=== PATIENT | male | born 1945 | race Caucasian/White ===

== ENCOUNTER 2021-01-10 12:02 | Emergency (ER) | payer OTHER, MEDICAID ==
[2021-01-10 12:59] VITALS: TEMP 97.7
[2021-01-10] MEDS ORDERED: NORVASC 10MG10 MG PO (14:30)
[2021-01-10 15:42] VITALS: BP 139/80; PULSE 85
== END 2021-01-10 15:45 | disposition home or self-care (01) ==
LOC: COL.ER 12:02
DX: M25.571 Pain in right ankle and joints of right foot (principal); M79.89 Other specified soft tissue disorders; I10 Essential (primary) hypertension; Z87.891 Personal history of nicotine dependence; Z79.899 Other long term (current) drug therapy

== ENCOUNTER 2022-02-27 09:16 | Inpatient (IN) | payer MEDICARE, MEDICAID ==
[~2022-02-27] VITALS: Ht 170.2 cm; Wt 78.4 kg
[2022-02-27] VITALS (713 sets, daily range): BP systolic 62–97; BP diastolic 40–63; PULSE 58–80; TEMP 91.2–97.7; O2SAT 86–100
[~2022-02-27 09:16] MED LIST: NORVASC 10MG10 MG PO
[2022-02-27 09:32] LABS: BASO # 0.1 K/mm3 (0.0-0.2); BASO % 0.7 % (0.0-2.0); EOS # 0.6 K/mm3 (0.0-0.7); EOS % 8.3 % (0.0-4.0); GRAN # 3.8 K/mm3 (1.4-6.5); GRAN % 50.2 % (42.2-75.2); HEMATOCRIT 39.7 % (42.0-52.0); HEMOGLOBIN 12.9 g/dl (13.5-18.0); LYMPH # 2.6 K/mm3 (1.2-3.4); LYMPH % 33.8 % (20.0-51.0); MEAN CELL VOLUME 100 fl (80.0-100.0); MEAN CORPUSCULAR HEMOGLOBIN 33 pg (27-31); MEAN CORPUSCULAR HGB CONC 33 g/dl (33.0-37.0); MEAN PLATELET VOLUME 10.1 fl (7.4-10.4); MONO # 0.5 K/mm3 (0.1-0.6); MONO % 6.7 % (1.7-9.3); PLATELET COUNT 166 K/mm3 (130-400); RED BLOOD COUNT 3.96 M/mm3 (4.20-5.60); REDCELL DISTRIBUTION WIDTH-CV 13.2 % (11.5-14.5)
[2022-02-27 09:49] LABS: BILIRUBIN,TOTAL 0.7 mg/dL (0.2-1.2); CALCIUM 9.7 mg/dL (8.4-10.2); CREATININE, serum 1.71 mg/dL (0.72-1.25); POTASSIUM 3.6 mmol/L (3.5-4.5); TOTAL PROTEIN 7.7 gm/dL (6.2-8.1)
[2022-02-27 10:13] LABS: COLLECTION METHOD CLEAN CATCH
[2022-02-27 10:29] LABS: MUCOUS Present (NOT PRESENT); URINE BACTERIA None Seen /hpf (NONE SEEN)
[2022-02-27 10:33] LABS: URINE APPEARANCE Hazy (CLEAR/HAZY); URINE BLOOD TRACE-INTACT (NEGATIVE); URINE COLOR Yellow (YELLOW); URINE GLUCOSE Negative (NEGATIVE); URINE KETONE Negative (NEGATIVE); URINE NITRATE Negative (NEGATIVE); URINE PROTEIN(semi-quant) Negative (NEGATIVE); URINE UROBILINOGEN 0.2 E.U/dL (0.2-1.0)
--- NOTE | 2022-02-27 12:34 | NUR ---
PT INTUBATED DUE TO L0W SATS ANF FAILED ATTEMPT WITH BIPAP. PT HAD ASPIRATED, WHICH CASUED DIFFICULTY OXYGENATING. SETTINGS GIVEN BE DR CARDONA
[2022-02-27] MEDS ORDERED: TYLENOL 325MG325 MG PO (12:54)
[2022-02-27] MEDS ORDERED: CLARITIN 1010 MG/TAB PO (12:55)
[2022-02-27] MEDS ORDERED: ARICEPT10 MG PO (12:55)
[2022-02-27] MEDS ORDERED: MUCINEX 60600 MG/TA1 PO (12:57)
[2022-02-27] MEDS ORDERED: LACTAID ULTRA9000 U (12:57)
[2022-02-27] MEDS ORDERED: FLOVENT 110MCG7.9 GM IH (12:57)
[2022-02-27] MEDS ORDERED: NAMENDA5 MG PO (12:58)
[2022-02-27] MEDS ORDERED: NORVASC 10MG10 MG PO (12:58)
[2022-02-27] MEDS ORDERED: TESSALON P100 MG/CAP PO (12:58)
[2022-02-27] MEDS ORDERED: B-12 500 MCG PO (12:59)
[2022-02-27 14:30] LABS: ARTERIAL BLD GAS O2 SATURATION 93.7 % (92-100); ARTERIAL BLD GAS TCO2 CT 20.1; ARTERIAL BLOOD GAS BASE EXCESS -7.9 (-2-2); ARTERIAL BLOOD GAS HCO3 18.8 meq/L (22-26); ARTERIAL BLOOD GAS PCO2 42.6 mmHg (35-45); ARTERIAL BLOOD GAS PO2 76.5 mmHg (80-100); ARTERIAL BLOOD GAS pH 7.26 (7.35-7.45)
--- NOTE | 2022-02-27 18:56 | NUR ---
1200: PT ARRIVED TO ICU 8 FROM ER ON VENTILATOR WITH ER STAFF. PT OPENS EYES. PT ARRIVED ON FENT @ 25MCG/HR AND PROPOFOL @ 20 MCG/KG/MIN TO [facility]. GUARDIAN IN WAITING ROOM AT THIS TIME. NEHEMIAH KAUR PLACED ON PT. COLLINS IN PLACE. 1914: REPORT GIVEN TO WAN NEVILLE. PT REMAINS ON VENT. SEE DOC FOR GTT TITRATION.
--- NOTE | 2022-02-27 19:21 | NUR ---
REPORT TAKEN, PT FOUND ON CHARTED SETTINGS, NO CHANGES MADE. ORAL CARE AT THIS TIME. ALARMS TESTED AND WORKING.
[2022-02-27 19:57] LABS: ARTERIAL BLD GAS O2 SATURATION 94.5 % (92-100); ARTERIAL BLOOD GAS BASE EXCESS -5.7 (-2-2); ARTERIAL BLOOD GAS HCO3 19.8 meq/L (22-26); ARTERIAL BLOOD GAS PCO2 38.9 mmHg (35-45); ARTERIAL BLOOD GAS PO2 73.7 mmHg (80-100); ARTERIAL BLOOD GAS pH 7.32 (7.35-7.45)
--- NOTE | 2022-02-27 20:00 | NUR ---
BEDSIDE REPORT RECEIVED FROM WAN WILKINS. PT ASSESSMENT COMPLETED AT THIS TIME. PT HAD LEVOPHED RUNNING AT A RATE OF 27.3ML/HR, NS AT 125ML/HR, PROPOFOL AT 15.1ML/HR, AND FENTANYL AT 3.8ML/HR. PT IS RESTING COMFORTABLY. VSS.
--- NOTE | 2022-02-27 20:58 | NUR ---
PTS OG TUBE UPON ASSESSMENT WAS AT 42 AT THE GUMS. AIR WAS NOT AUDIBLE WITH THIS PLACEMENT. ADVANCED THE OG TUBE TO 60 AT THE GUMS AND AIR WAS AUDIBLE AT THIS POSITION. VIPUL CLARKE WAS MADE AWARE. OG TUBE WILL REMAIN CLAMPED UNTIL AM CHEST XRAY TO REVERIFY PLACEMENT.
--- NOTE | 2022-02-27 21:40 | NUR ---
ETT 24@ [facility]. (No teeth)
--- NOTE | 2022-02-27 23:26 | NUR ---
MELVA 24@ [facility].
[2022-02-28] VITALS (1324 sets, daily range): BP systolic 85–126; BP diastolic 48–79; PULSE 67–101; TEMP 98.6–100.4; O2SAT 80–100
[2022-02-28 04:26] LABS: MEAN CELL VOLUME 100 fl (80.0-100.0); MEAN CORPUSCULAR HEMOGLOBIN 33 pg (27-31); MEAN CORPUSCULAR HGB CONC 33 g/dl (33.0-37.0); MEAN PLATELET VOLUME 9.9 fl (7.4-10.4); PLATELET COUNT 131 K/mm3 (130-400); RED BLOOD COUNT 3.34 M/mm3 (4.20-5.60); REDCELL DISTRIBUTION WIDTH-CV 13.3 % (11.5-14.5)
[2022-02-28 04:31] LABS: ARTERIAL BLD GAS O2 SATURATION 93.5 % (92-100); ARTERIAL BLD GAS TCO2 CT 18.5; ARTERIAL BLOOD GAS BASE EXCESS -8.5 (-2-2); ARTERIAL BLOOD GAS HCO3 17.4 meq/L (22-26); ARTERIAL BLOOD GAS PCO2 37.2 mmHg (35-45); ARTERIAL BLOOD GAS PO2 70.9 mmHg (80-100); ARTERIAL BLOOD GAS pH 7.29 (7.35-7.45)
[2022-02-28 04:31] LABS: HEMATOCRIT 33.3 % (42.0-52.0)
[2022-02-28 04:44] LABS: ALBUMIN 2.9 gm/dL (3.4-4.8); CREATININE, serum 1.53 mg/dL (0.72-1.25); MAGNESIUM 1.6 mg/dL (1.6-2.6); PHOSPHOROUS 4.3 mg/dL (2.3-4.7); POTASSIUM 4.5 mmol/L (3.5-4.5); TOTAL PROTEIN 5.7 gm/dL (6.2-8.1)
[2022-02-28 04:55] LABS: BAND 47 % (0-10); LYMPHOCYTE 10 % (20.0-51.0); METAMYELOCYTE 3 % (0-0); NEUTROPHILS 37 % (42.0-75.2); PLATELET ESTIMATE NORMAL (NORMAL)
--- NOTE | 2022-02-28 05:05 | NUR ---
THROUGHOUT THE NIGHT PT HAS BEEN WELL SEDATED. THROUGHOUT THE NIGHT PTS PROPOFOL HAS BEEN DECREASED FROM 35 TO 25MCG/KG/HR. FENTANYL DECREASED FROM 75MCG/HR TO 50. PT IS STILL SHOWING MODERATE SEDATION WILL CONTINUE TO TITRATE DOWN PER ORDERS NECESSARY.
--- NOTE | 2022-02-28 05:15 | NUR ---
Verbal order from VIPUL Verma Vt [address]. Pt tolerating well.
--- NOTE | 2022-02-28 07:45 | NUR ---
ASSESSMENT COMPLETE. VITAL SIGNS STABLE AT THIS TIME. PATIENT OPENS EYES TO PHYSICAL STIMULI AND MOVES EXTREMITIES UPON PAINFUL STIMULI, HOWEVER DOES NOT FOLLOW VERBAL COMMANDS. ASSISTED WITH ORAL AND ANGEL CARE AND WILL CONTINUE TO MONITOR PATIENT THROUGHOUT SHIFT.
--- NOTE | 2022-02-28 08:00 | NUR ---
UNABLE TO PERFORM SUICIDE SCREEN DUE TO PATIENT ON A VENTILATOR AND SEDATED.
--- NOTE | 2022-02-28 10:55 | NUR ---
NOTIFIED DR. CARDONA ABOUT PATIENT'S LOW URINE OUTPUT OVER NIGHT. RECIEVED ORDER FOR NS BOLUS AND CHANGE FLUIDS TO LR.
--- NOTE | 2022-02-28 16:15 | NUR ---
NOTIFIED HOSPITALIST ABOUT ELEVATED TEMPATURE AND RECEIVED ORDER FOR PRN ORAL TYLENOL.
--- NOTE | 2022-02-28 16:27 | NUR ---
Patient is on a ventilator at this time. airplane woodworker contacted Carina at [facility], where patient resides. Carina states that Gary Warren is patient's guardian and he will fax this information to the ICU unit.
--- NOTE | 2022-02-28 17:00 | NUR ---
SEDATION VACATION NOT PERFORMED FOR PATIENT WAS MOVING AROUND AND PULLING AT RESTRAINTS AND LIFTING HAND TOWARDS ET TUBE. REPOSITIONED PATIENT BUT PATIENT WAS STILL RESTLESS AND LIFTING HAND TOWARD ET TUBE. PATIENT FOLLOWED SIMPLE COMMANDS ABLE TO SQUEEZE WITH HIS RIGHT HAND, WIGGLE TOES, AND OPEN EYES. WILL CONTINUE TO MONITOR THROUGHOUT THIS SHIFT.
--- NOTE | 2022-02-28 19:05 | NUR ---
Received report from WAN Razo.
--- NOTE | 2022-02-28 21:00 | NUR ---
Patient resting quietly in bed. He remains on ventilator, tolerating well. He continues to receive fentanyl, propofol, and levophed drips; see IV drip titrations. Miles catheter draining yellow, hazy urine; to dependent drainage. Miles temperature of 99.9 F, all other vitals within normal limits. Bed in lowest position, all alarms on.
[2022-03-01] VITALS (1120 sets, daily range): BP systolic 93–123; BP diastolic 54–68; PULSE 77–106; TEMP 98.4–100.4; O2SAT 75–100
--- NOTE | 2022-03-01 00:31 | NUR ---
PRESENTED TO ROOM TO CHECK VENT. RECIEVED WORD FROM RN THAT HER AND THE STUDENT HAD JUST COMPLETED ORAL CARE ON PT. NO INDICATION FOR SUCTIONING AT THIS TIME.
--- NOTE | 2022-03-01 04:24 | NUR ---
RN AND STUDENT IN ROOM AT THIS TIME. RN AND STUDENT ARE PERFORMING ORAL CARE ON PT AT TIME OF 022 CHECK HELPED TO ADJUST PT IN BED. NO COMPLICATIONS. NO VOICED CONCERNS.
[2022-03-01 04:51] LABS: HEMOGLOBIN 10.1 g/dl (13.5-18.0); MEAN CELL VOLUME 100 fl (80.0-100.0); MEAN CORPUSCULAR HEMOGLOBIN 33 pg (27-31); MEAN CORPUSCULAR HGB CONC 33 g/dl (33.0-37.0); MEAN PLATELET VOLUME 10.6 fl (7.4-10.4); PLATELET COUNT 114 K/mm3 (130-400); RED BLOOD COUNT 3.07 M/mm3 (4.20-5.60); REDCELL DISTRIBUTION WIDTH-CV 13.6 % (11.5-14.5)
[2022-03-01 04:53] LABS: HEMATOCRIT 30.8 % (42.0-52.0)
[2022-03-01 05:02] LABS: PHOSPHOROUS 3.9 mg/dL (2.3-4.7)
[2022-03-01 05:03] LABS: MAGNESIUM 1.6 mg/dL (1.6-2.6)
--- NOTE | 2022-03-01 05:03 | NUR ---
Sedation set to standby for lab draws. On standby for roughly 10 minutes; patient responds by opening eyes spontaneously and following verbal commands. Lifting head off of pillow voluntarily. No further sedation vacation performed; previous levels resumed.
[2022-03-01 05:04] LABS: ALBUMIN 2.5 gm/dL (3.4-4.8); BILIRUBIN,TOTAL 1.1 mg/dL (0.2-1.2); CALCIUM 8.2 mg/dL (8.4-10.2); CREATININE, serum 1.33 mg/dL (0.72-1.25); POTASSIUM 4.1 mmol/L (3.5-4.5); TOTAL PROTEIN 5.4 gm/dL (6.2-8.1)
[2022-03-01 05:27] LABS: BAND 33 % (0-10); HYPOCHROMIA 1+; LYMPHOCYTE 4 % (20.0-51.0); METAMYELOCYTE 4 % (0-0); NEUTROPHILS 50 % (42.0-75.2); PLATELET ESTIMATE DECREASED (NORMAL)
[2022-03-01 05:28] LABS: ARTERIAL BLD GAS O2 SATURATION 92.2 % (92-100); ARTERIAL BLD GAS TCO2 CT 20.5; ARTERIAL BLOOD GAS BASE EXCESS -5.9 (-2-2); ARTERIAL BLOOD GAS HCO3 19.3 meq/L (22-26); ARTERIAL BLOOD GAS pH 7.34 (7.35-7.45)
[2022-03-01 05:41] LABS: EOSINOPHIL 3 % (0-4)
--- NOTE | 2022-03-01 08:15 | NUR ---
Assessment completed; VS stable and off of pressors. Attempts to open eyes on command but doesn't follow any other commands. Provided gloria-care and reposited at this time.
--- NOTE | 2022-03-01 11:22 | NUR ---
AT 1114 PT PLACED BACK ON PREVIOUS SETTINGS RR 40-45 SATS 88-90%. RN & DR. CARDONA NOTIFIED
--- NOTE | 2022-03-01 11:23 | NUR ---
AT 1114 PT PLACED BACK ON SETTINGS RR 40-45, SATS 88-90%. RN AND DR. CARDONA NOTIFIED
--- NOTE | 2022-03-01 11:24 | NUR ---
Respirations 30's-40's on CPAP trial. RT placed patient back on AC mode on ventilator and notified Dr. Yip. Sedation placed back on.
--- NOTE | 2022-03-01 16:30 | NUR ---
Sedation vacation not performed at this time due to patient being restless in bed; shaking head back and forth, attempting to sit up in bed and pulling at restraints. Patient did open eyes and squeezed this nurses hands on command. Attempted to re-orient patient at this time. Stayed at bedside to help calm patient and sedation increased.
--- NOTE | 2022-03-01 18:47 | NUR ---
Patient having intermittent low grade fevers during shift. PRN tylenol administered this afternoon. Hospitalist notified; will obtain blood cultures and assess current antibiotic regime.
--- NOTE | 2022-03-01 18:59 | NUR ---
PT RESTING IN BED AT THIS TIME. HOB ELEVATED TO BE 30 DEGREES+ AMBUBAG AT HOB ON FLOW METER. PT IS AGGITATED AT THS TIME. RN AWARE/NOTIFIED. WATER TRAP ON VENT DRAINED. RESTRAINTS ARE SECURE. RAILS UP X4.
--- NOTE | 2022-03-01 19:18 | NUR ---
Vancomycin Initial Dosing Pharmacy Note Ordering provider: Kaley Ma MD Indication/duration: Fever, 7 days LABS: SCr 1.33, CrCl~39, GFR 55 Recommendation: Give Vancomycin 1.5 gm IV x1 loading dose, then Vancomycin 1.25 gm IV q24h. Pharmacy will continue to closely monitor. Loading dose: 1.5 grams Maintenance dose: 1.25 grams every 24 hours Trough goal: 15-20 ug/mL
--- NOTE | 2022-03-01 22:44 | NUR ---
NO CHANGES MADE DURING THIS CHECK. AMBU BAG ON FLOW METER BEHIND BED. WATER TRAP DRAINED. RAILS UP. RESTRAINTS SECURE. HOB ELEVATED.
[2022-03-02] VITALS (995 sets, daily range): BP systolic 77–144; BP diastolic 53–80; PULSE 63–89; TEMP 98.1–100.4; O2SAT 73–100
--- NOTE | 2022-03-02 00:56 | NUR ---
ASSISTED NURSING WITH CHANGING SHEETS AND TURNING PT. PT TOLERATED WELL BUT DID EXPERIENCE COUGHING FITS WHILE TURNING. NO COMPLICATIONS. NO VOICED CONCERNS. AMBU BAG ON FLOW METER ON WALL. LINES/CORDS OUT OF REACH OF PT. ORAL CARE PERFORMED. MOD AMOUNT OF THICK AUGUSTINE AND BROWN SECRETIONS SUCTIONED. SECRETIONS WERE THICK AND REQUIRED SALINE.VERIFIED THAT THE VENTILATOR WAS PLUGGED INTO RED OUTLETS.
[2022-03-02 04:52] LABS: ARTERIAL BLD GAS O2 SATURATION 89.9 % (92-100); ARTERIAL BLD GAS TCO2 CT 21.9; ARTERIAL BLOOD GAS HCO3 20.8 meq/L (22-26); ARTERIAL BLOOD GAS PCO2 36.3 mmHg (35-45); ARTERIAL BLOOD GAS PO2 57.9 mmHg (80-100); ARTERIAL BLOOD GAS pH 7.38 (7.35-7.45)
--- NOTE | 2022-03-02 05:09 | NUR ---
VENT CHECK PERFORMED. TX AND VNET CHECK WERE DELAYED RN HAD ASKED IF WE COULD WAIT DUE TO AGGITATION/VENT ALARMING. AGREED AND VERIFIED PT WAS IN STABLE CONDITION. ABG DRAWN.
--- NOTE | 2022-03-02 05:14 | NUR ---
0245 - DUE TO PT RECENT SETTLING DOWN AND AGGITATION ON VENT WILL TEND TO OTHER PATIENTS. SPOKE WITH RN AND SHE AGREED.
--- NOTE | 2022-03-02 05:16 | NUR ---
PATIENT ABLE TO FOLLOW MINIMAL COMMANDS ON CURRENT SEDATION. PATIENT TO ATTEMPT WEANING TRIAL LATER THIS AM.
[2022-03-02 05:38] LABS: MEAN CELL VOLUME 101 fl (80.0-100.0); MEAN CORPUSCULAR HGB CONC 32 g/dl (33.0-37.0); MEAN PLATELET VOLUME 10.7 fl (7.4-10.4); PLATELET COUNT 109 K/mm3 (130-400); RED BLOOD COUNT 2.93 M/mm3 (4.20-5.60); REDCELL DISTRIBUTION WIDTH-CV 13.8 % (11.5-14.5)
[2022-03-02 05:40] LABS: HEMATOCRIT 29.7 % (42.0-52.0); HEMOGLOBIN 9.6 g/dl (13.5-18.0); MEAN CORPUSCULAR HEMOGLOBIN 33 pg (27-31)
[2022-03-02 06:01] LABS: ALBUMIN 2.3 gm/dL (3.4-4.8); CALCIUM 8.2 mg/dL (8.4-10.2); CREATININE, serum 1.4 mg/dL (0.72-1.25); MAGNESIUM 2.1 mg/dL (1.6-2.6); PHOSPHOROUS 3.1 mg/dL (2.3-4.7); POTASSIUM 3.9 mmol/L (3.5-4.5); TOTAL PROTEIN 5.3 gm/dL (6.2-8.1)
[2022-03-02 06:02] LABS: BAND 24 % (0-10); EOSINOPHIL 6 % (0-4); HYPOCHROMIA 1+; LYMPHOCYTE 6 % (20.0-51.0); METAMYELOCYTE 2 % (0-0); NEUTROPHILS 59 % (42.0-75.2); PLATELET ESTIMATE DECREASED (NORMAL)
--- NOTE | 2022-03-02 06:21 | NUR ---
PATIENT REQUIRED X2 DOSE OF TYLENOL FOR TEMPS DURING NIGHT. REPOSITIONED Q2. RESTING IN BED THIS AM.
--- NOTE | 2022-03-02 07:35 | NUR ---
Report given to WAN Baltazar
--- NOTE | 2022-03-02 09:46 | NUR ---
Received call from Danni with [facility] and she provided in network nursing faclities (Janessa and Junior Ly) for discharge planning. Patient remains on the ventilator at this time.
--- NOTE | 2022-03-02 14:08 | NUR ---
Initial visit; Patient is vented and asleep much of the time. Cleaning Manager offered prayer in hopes he heard her praying.
--- NOTE | 2022-03-02 15:07 | NUR ---
INCREASED FLUSH ORDERED FOR TUBE FEED
--- NOTE | 2022-03-02 16:33 | NUR ---
tnt powder worker left message for Baylee, guardian to call.
[2022-03-03] VITALS (1342 sets, daily range): BP systolic 102–140; BP diastolic 61–88; PULSE 56–92; TEMP 97.5–98.1; O2SAT 87–100
[2022-03-03 05:23] LABS: MEAN CELL VOLUME 98 fl (80.0-100.0); MEAN CORPUSCULAR HGB CONC 34 g/dl (33.0-37.0); MEAN PLATELET VOLUME 10.9 fl (7.4-10.4); PLATELET COUNT 142 K/mm3 (130-400); RED BLOOD COUNT 2.86 M/mm3 (4.20-5.60); REDCELL DISTRIBUTION WIDTH-CV 13.7 % (11.5-14.5)
[2022-03-03 05:33] LABS: HEMOGLOBIN 9.5 g/dl (13.5-18.0); MEAN CORPUSCULAR HEMOGLOBIN 33 pg (27-31)
[2022-03-03 06:05] LABS: CALCIUM 8.3 mg/dL (8.4-10.2); CREATININE, serum 1.46 mg/dL (0.72-1.25); PHOSPHOROUS 3.2 mg/dL (2.3-4.7); POTASSIUM 3.7 mmol/L (3.5-4.5)
--- NOTE | 2022-03-03 07:00 | NUR ---
REPORT RECEIVED FROM WAN BUSCH; PATIENT CURRENTLY ON MINIMAL SEDATION IN ANTICIPATION OF WEANING TRIAL THIS AM. PATIENT IS AGITATED AND RESTLESS. PATIENT REMAINS ON LEVOPHED AND PRESSURES ARE WITHIN NORMAL LIMITS, ARE ALL OTHER VITAL SIGNS.
[2022-03-03 07:32] LABS: BAND 10 % (0-10); LYMPHOCYTE 7 % (20.0-51.0); NEUTROPHILS 80 % (42.0-75.2); PLATELET ESTIMATE NORMAL (NORMAL)
--- NOTE | 2022-03-03 12:50 | NUR ---
Aware of consult. Discussed guardian situation with SW and will stand-by with assistance as needed.
--- NOTE | 2022-03-03 14:23 | NUR ---
dialysis social worker met with patient's guardian and provided physician documentation to support request for expanded rights to 1. make patient a DNR and 2. withdraw care/ventilator if recommended by physician team. Manda verbalizes understanding and has a copy of her guardianship and patient's living will to support the above information.
--- NOTE | 2022-03-03 15:55 | NUR ---
Manda, guardian, stated that she will need to obtain expanded rights through the [place] court system. Manda also stated that patient's is planned and [facility] [facility] [place] #[phone].
--- NOTE | 2022-03-03 20:09 | NUR ---
ATTEMPTED WEANING TRIAL THIS AFTERNOON; PATIENT BECAME INCREASINGLY AGITATED AND WOULD NOT FOLLOW COMMANDS. SEDATION WAS RESTARTED AT PREVIOUS LEVELS AND RT NOTIFIED TO SWITCH HIM BACK TO AC MODE ON VENT.
[2022-03-04] VITALS (1435 sets, daily range): BP systolic 90–123; BP diastolic 46–69; PULSE 56–90; TEMP 97.9–98.2; O2SAT 78–100
[2022-03-04 05:45] LABS: BASO % 0.1 % (0.0-2.0); GRAN # 6.2 K/mm3 (1.4-6.5); GRAN % 86.2 % (42.2-75.2); LYMPH # 0.5 K/mm3 (1.2-3.4); LYMPH % 7.1 % (20.0-51.0); MEAN CELL VOLUME 98 fl (80.0-100.0); MEAN CORPUSCULAR HGB CONC 33 g/dl (33.0-37.0); MEAN PLATELET VOLUME 10.6 fl (7.4-10.4); MONO # 0.4 K/mm3 (0.1-0.6); MONO % 5.8 % (1.7-9.3); PLATELET COUNT 145 K/mm3 (130-400); RED BLOOD COUNT 2.63 M/mm3 (4.20-5.60); REDCELL DISTRIBUTION WIDTH-CV 14.3 % (11.5-14.5)
[2022-03-04 05:54] LABS: HEMATOCRIT 25.8 % (42.0-52.0); HEMOGLOBIN 8.6 g/dl (13.5-18.0); MEAN CORPUSCULAR HEMOGLOBIN 33 pg (27-31)
[2022-03-04 06:07] LABS: ALBUMIN 1.9 gm/dL (3.4-4.8); CREATININE, serum 1.66 mg/dL (0.72-1.25); PHOSPHOROUS 3.4 mg/dL (2.3-4.7); POTASSIUM 3.4 mmol/L (3.5-4.5)
--- NOTE | 2022-03-04 10:20 | NUR ---
Placed on CPAP trial Per Dr. Yip. Will extubate to comfort care.
--- NOTE | 2022-03-04 10:43 | NUR ---
RT CALLED TO BEDSIDE TO PROCEED WITH COMFORT CARE MEASURES, PATIENT EXTUBATED AT 1040 WITH RN AT BEDSIDE. PT LEFT ON ROOM AIR WITH SATURATIONS STILL GREATER THAN 90%.
--- NOTE | 2022-03-04 11:00 | NUR ---
Clarified plan of care with Dr. Yip and Dr. Shelby. Will remain comfort care but can continue all other medications for medical managment, including supplemental oxygen. Placed on 4L oxymask post extubation. Guardian at bedside.
--- NOTE | 2022-03-04 11:13 | NUR ---
POST EXTUBATION, PATIENT PLACED ON 4LOM. PER RN WE ARE CONTINUING SOME MEAUSURES OF CARE THAT REACH FURTHER THAN COMFORT MEASURES AT THIS TIME
--- NOTE | 2022-03-04 12:16 | NUR ---
Swimming Pool Salesperson rounds: Patient was sleeping. Swimming Pool Salesperson offered prayer.
--- NOTE | 2022-03-04 14:08 | NUR ---
Extubated at 1040. Oral cavity suctioned prior and post extubation. Guardian at bedside. Will continue to monitor.
--- NOTE | 2022-03-04 14:41 | NUR ---
Restless in bed; lifting arms up and attempting to sit up in bed. Patient moans but is unable to verbalize any coherent words or statements. Patient has secretions in throat which he is unable to clear himself. Scopalamine patch is in place and oral cavity suctioned as needed. PRN anxity and pain medication administered. Will continue to monitor.
[2022-03-05] VITALS (588 sets, daily range): BP systolic 117–155; BP diastolic 65–90; PULSE 75–94; TEMP 97.5–99.1; O2SAT 79–100
--- NOTE | 2022-03-05 02:59 | NUR ---
HANDOFF REPORT RECEIVED FROM NARAYAN BLAS
[2022-03-05 06:44] LABS: BASO % 0.1 % (0.0-2.0); GRAN # 5.7 K/mm3 (1.4-6.5); GRAN % 82.1 % (42.2-75.2); LYMPH # 0.7 K/mm3 (1.2-3.4); LYMPH % 10.3 % (20.0-51.0); MEAN CELL VOLUME 100 fl (80.0-100.0); MEAN CORPUSCULAR HGB CONC 33 g/dl (33.0-37.0); MEAN PLATELET VOLUME 9.8 fl (7.4-10.4); MONO # 0.4 K/mm3 (0.1-0.6); MONO % 6.2 % (1.7-9.3); PLATELET COUNT 172 K/mm3 (130-400); RED BLOOD COUNT 2.96 M/mm3 (4.20-5.60); REDCELL DISTRIBUTION WIDTH-CV 14.4 % (11.5-14.5)
[2022-03-05 06:47] LABS: HEMATOCRIT 29.5 % (42.0-52.0); HEMOGLOBIN 9.7 g/dl (13.5-18.0); MEAN CORPUSCULAR HEMOGLOBIN 33 pg (27-31)
[2022-03-05 06:58] LABS: ALBUMIN 2.1 gm/dL (3.4-4.8); CALCIUM 8.5 mg/dL (8.4-10.2); CREATININE, serum 1.52 mg/dL (0.72-1.25); PHOSPHOROUS 3.8 mg/dL (2.3-4.7); POTASSIUM 3.7 mmol/L (3.5-4.5)
--- NOTE | 2022-03-05 07:00 | NUR ---
PT RESTING IN BED. VSS. PT ON OXYMASK. BED ALARM ACTIVE. CALL LIGHT WITH IN REACH.
--- NOTE | 2022-03-05 10:12 | NUR ---
0945-report called to Ana BLAS. All questions answered. 1000-Pt transported to room 355. Ana BLAS notified of arrival to floor. Call light within reach. Spoke with Dr.Jain sanches to [facility].
--- NOTE | 2022-03-05 10:24 | NUR ---
Pt arrived to room 355. He is alert but not oriented. Will open his eyes to voice but does not respond to questions. Will not follow commands. Breathing even and unlabored on 4.5L O2 via OM. Edema to bilateral arms and legs. Pt does have a rectal tube and campos DD. Positioned with pillows. Fall precautions in place.
--- NOTE | 2022-03-05 19:08 | NUR ---
PATIENT IS LAYING IN BED WITH OXY MASK OFF. THIS NURSE PLACES OXY MASK BACK ON PATIENT. PATIENT DENIES PAIN, NEEDS OR CONCERNS AT THIS TIME. CALL TO VIPUL TOVAR TO INFORM OF LUNG SOUNDS. CALL LIGHT IS WITHIN PAITENT REACH. PATIENT ROOM IS CLOSE TO NURSING STATION.
[2022-03-06 04:24] VITALS: PULSE 73
[2022-03-06 05:46] VITALS: BP 149/79; PULSE 77; TEMP 98.9
[2022-03-06 06:26] LABS: MEAN CELL VOLUME 102 fl (80.0-100.0); MEAN CORPUSCULAR HEMOGLOBIN 33 pg (27-31); MEAN CORPUSCULAR HGB CONC 32 g/dl (33.0-37.0); MEAN PLATELET VOLUME 10.1 fl (7.4-10.4); PLATELET COUNT 222 K/mm3 (130-400); RED BLOOD COUNT 3.05 M/mm3 (4.20-5.60); REDCELL DISTRIBUTION WIDTH-CV 14.1 % (11.5-14.5)
[2022-03-06 06:37] LABS: HEMATOCRIT 31.2 % (42.0-52.0)
[2022-03-06 06:57] LABS: ALBUMIN 2.5 gm/dL (3.4-4.8); BILIRUBIN,TOTAL 0.5 mg/dL (0.2-1.2); CALCIUM 8.7 mg/dL (8.4-10.2); CREATININE, serum 1.37 mg/dL (0.72-1.25); MAGNESIUM 1.9 mg/dL (1.6-2.6); PHOSPHOROUS 2.4 mg/dL (2.3-4.7); POTASSIUM 3.3 mmol/L (3.5-4.5); TOTAL PROTEIN 6.1 gm/dL (6.2-8.1)
[2022-03-06 07:41] VITALS: BP 134/79; PULSE 86; TEMP 98.4
[2022-03-06 07:46] LABS: BAND 7 % (0-10); LYMPHOCYTE 15 % (20.0-51.0); METAMYELOCYTE 4 % (0-0); NEUTROPHILS 72 % (42.0-75.2); PLATELET ESTIMATE NORMAL (NORMAL)
--- NOTE | 2022-03-06 09:14 | NUR ---
Patient is resting in bed, alert and follows commands but difficult to understand. Cath campos in place, eduarda with sediment output. Rectal tube in pace, loose brown stool. Assessment completed, hygiene provided. No other needs at this time. Call light within reach.
[2022-03-06 11:24] VITALS: BP 131/94; PULSE 77; TEMP 98.4
--- NOTE | 2022-03-06 15:45 | NUR ---
Dermatology Physician collaborated with patient's Guardian, Baylee who secured expanded rights for patient. SW placed signed court documents on patient's chart. Patient has transitioned to comfort care. MONTRELL left Baylee a message to discuss further discharge planning. MONTRELL spoke with WAN Rowe at [facility] and faxed clinical updates. Soledad to visit patient this afternoon. Soledad would like to see how patient does overnight before deciding if they can meet his needs.
[2022-03-06 15:52] VITALS: BP 150/52; PULSE 77; TEMP 98.8
--- NOTE | 2022-03-06 17:43 | NUR ---
Patient has been resting in bed, alert and able to follow commands. Slurred speach. Catheter capmos and rectal tube in place. Now formally in comfort care. Report will be given to night RN.
--- NOTE | 2022-03-07 02:27 | NUR ---
THE PATIENT IS ON COMFORT CARE AND IS RESTLESS AND CONFUSED. THE PATIENT HAS A RECTAL TUBE WITH BROWN LOOSE STOOL NOTED. THE PATIENT ALSO HAS A COLLINS WITH TEA COLORED URINE THAT IS CLOUDY WITH SEDIMENT NOTED. BED ALARM IN PLACE, BED IN LOWEST POSITION. WILL MONITOR.
[2022-03-07 12:31] VITALS: BP 128/61; PULSE 69; TEMP 98.9
--- NOTE | 2022-03-07 15:00 | NUR ---
Sales Representative Public Utilities contacted [facility] to review discharge plan. Baylee advised that if patient is stable to be discharged, her preference would be to return to [facility] with hospice. MONTRELL provided options for hospice agencies and Baylee selected [facility]. MONTRELL contacted WAN Rowe at [facility] who advised they can accept patient once hospice services and DME is arranged. MONTRELL spoke with Tylor at [facility] and advised that patient will need a hospital bed and oxygen. Tylor will contact the DME company to start this process. Plan will be for discharge tomorrow morning to allow time for DME and services to be arranged. MONTRELL updated VIPUL Starks who is in agreement with discharge timeline and will re-evaluate in the morning to determine if patient is stable enough for discharge. MONTRELL updated patient's Guardian, Soledad at [facility], and Palliative WAN Pike. Discharge Plan: [facility] with [facility] tomorrow if stable
--- NOTE | 2022-03-07 22:34 | NUR ---
Patient assessed around 1934. Given PRN Roxanol at that time. Repositioned in bed. Oral care provided, mouth very dry. Patient continues on comfort care measures. In bed with call light within reach. High fall risk precautions in place. Bed alarm on.
--- NOTE | 2022-03-08 05:40 | NUR ---
Patient continues on comfort care. Given PRN medications during the night per orders. In bed with call light within reach. High fall risk precautions in place. Bed alarm on.
[2022-03-08] MEDS ORDERED: SYSTANE 0.4%-0.1 SOL OU ×2 (08:03)
[2022-03-08] MEDS ORDERED: TRANSDERM-0.5 MG/21 TD ×2 (08:03)
[2022-03-08] MEDS ORDERED: ATIVAN 1MG T1 MG/TAB PO ×3 (08:03→11:28)
[2022-03-08] MEDS ORDERED: DULCOLAX S10 MG/SUPP RC ×2 (08:03)
[2022-03-08] MEDS ORDERED: ROXANOL 20MG20 MG/ML SL ×3 (08:03→11:28)
--- NOTE | 2022-03-08 08:19 | NUR ---
Patient is resting in bed, alert, uncovered. Catheter campos and rectal tube in place. Has been NPO. Some agitation reported at night. Assessment completed, repositioned. Hygiene provided. No other needs at this time, bed alar on.
--- NOTE | 2022-03-08 12:06 | NUR ---
Pt is going to be transfered to [facility] with hospice care. EMS is transfering him. Rectal tube and central line were removed. PPW was given to EMS. Report given to Soledad BLAS receiving in [place].
--- NOTE | 2022-03-08 13:10 | NUR ---
Frit Mixer And Burner collaborated with Soledad at [facility] and Kasey at [facility] to set transport time for 1200. MONTRELL contacted [facility] and they will arrive at noon for moss picker. MONTRELL placed completed EMS forms on chart. MONTRELL contacted patient's guardian, Manda and she is in agreement with discharge to [facility] with [facility]. MONTRELL provided Manda with transport time. MONTRELL faxed discharge orders to [facility] and to [facility]. Discharge Plan: [facility] with [facility].
== END 2022-03-08 19:07 | disposition hospice, home (50) | DRG 207 ==
LOC: COL.ER 09:16 → ICU 11:03 → MEDICAL 03-05 10:11 → ICU 03-05 10:11 → MEDICAL 03-08 12:20
PROVIDERS: Internal Medicine; Internal Medicine Sleep Medicine; Personal Emergency Response Attendant; ADMIT Student in an Organized Health Care Education/Training Program
PROC: 5A1955Z Respiratory Ventilation, Greater than 96 Consecutive Hours (ICD-10-PCS; principal; 2022-02-27)
PROC: 0BH17EZ Insertion of Endotracheal Airway into Trachea, Via Natural or Artificial Opening (ICD-10-PCS; 2022-02-27)
PROC: 0BC78ZZ Extirpation of Matter from Left Main Bronchus, Via Natural or Artificial Opening Endoscopic (ICD-10-PCS; 2022-02-27)
PROC: 02HV33Z Insertion of Infusion Device into Superior Vena Cava, Percutaneous Approach (ICD-10-PCS; 2022-02-27)
DX: J69.0 Pneumonitis due to inhalation of food and vomit (principal); J96.01 Acute respiratory failure with hypoxia; E87.2 Acidosis; T17.528A Food in bronchus causing other injury, initial encounter; J91.8 Pleural effusion in other conditions classified elsewhere; Z66 Do not resuscitate; Z51.5 Encounter for palliative care; I10 Essential (primary) hypertension; F03.90 Unspecified dementia, unspecified severity, without behavioral disturbance, psychotic disturbance, mood disturbance, and anxiety; Z20.822 Contact with and (suspected) exposure to COVID-19; I95.9 Hypotension, unspecified; F79 Unspecified intellectual disabilities; J30.9 Allergic rhinitis, unspecified; E86.0 Dehydration; D72.829 Elevated white blood cell count, unspecified; Z88.2 Allergy status to sulfonamides
CPT/HCPCS: A4314; J0171; J0456; J1650; J1815; J1940; J2060; J2270; J2543; J2704; J2920; J3010; J3370; J3475; J7030; J7050; J7060; J7070; J7120